=== PATIENT | female | born 1970 | race Caucasian/White ===

== ENCOUNTER 2018-10-15 03:50 | Observation (INO) | payer OTHER ==
--- NOTE | 2018-10-15 04:11 | RADIOLOGY REPORT (SQ) ---
EXAM DESCRIPTION: CT HEAD WITHOUT IV CONTRAST COMPLETED DATE/TME: 10/15/2018 03:55 CLINICAL HISTORY: 48 years, Female, stroke alert COMPARISON: 02/13/2016 CT TECHNIQUE: 190 Images stored on PACS. All CT scanners at this facility use dose modulation, iterative reconstruction, and/or weight based dosing when appropriate to reduce radiation dose to as low as reasonably achievable (ALARA). [facility]: Dose Right [facility]: CareDose [facility]: Dose Right [facility]: Teradose 4D [facility]: [employer] LIMITATIONS: None. FINDINGS: The globes are intact. Paranasal sinuses and mastoid air cells are unremarkable. No displaced or depressed skull fracture. No intra or extra-axial hemorrhage. CT is limited for evaluation of acute infarct. No CT evidence for large or territorial acute infarct. No mass or midline shift. IMPRESSION: Negative exam TECHNICAL DOCUMENTATION: Quality ID # 436: Final reports with documentation of one or more dose reduction techniques (e.g., Automated exposure control, adjustment of the mA and/or kV according to patient size, use of iterative reconstruction technique) copyright 2011 [employer]- All Rights Reserved
[2018-10-15 04:17] LABS: ABSOLUTE EOSINOPHILS # (AUTO) 0.1 10^3/uL (0.0-0.6); ABSOLUTE LYMPHOCYTES (AUTO) 1.5 10^3/uL (0.5-4.7); ABSOLUTE MONOCYTES (AUTO) 0.4 10^3/uL (0.1-1.4); ABSOLUTE NEUT (AUTO) 4.4 10^3/uL (1.7-8.2); BASOPHILS % (AUTO) 0.5 % (0-2); EOSINOPHILS % (AUTO) 1.2 % (0-6); HEMATOCRIT 43.7 % (36.0-47.0); HEMOGLOBIN 14.7 g/dL (12.0-15.5); MEAN CORPUSCULAR HGB CONC 33.5 g/dL (32.0-36.0); MEAN CORPUSCULAR VOLUME 84 fl (80-97); MONOCYTES % (AUTO) 6.6 % (3-13); PLATELET COUNT 314 10^3/uL (150-450); RED BLOOD COUNT 5.24 10^6/uL (3.72-5.28); RED CELL DISTRIBUTION WIDTH 14.6 % (11.5-14.0); SEGMENTED NEUTROPHILS % (AUTO) 68.7 % (42-78); TOTAL CELLS COUNTED % (AUTO) 100 %; WHITE BLOOD COUNT 6.5 10^3/uL (4.0-10.5)
--- NOTE | 2018-10-15 04:17 | RADIOLOGY REPORT (SQ) ---
EXAM DESCRIPTION: XR CHEST 1 VIEW COMPLETED DATE/TME: 10/15/2018 03:55 CLINICAL HISTORY: 48 years, Female, stroke alert COMPARISON: None. NUMBER OF VIEWS: 1 TECHNIQUE: Portable chest LIMITATIONS: None. FINDINGS: Heart size normal. Lungs are clear. No pneumothorax IMPRESSION: Negative chest copyright 2010 [employer]- All Rights Reserved
[2018-10-15 04:22] LABS: PROTHROMBIN TIME 12.6 SEC (11.4-15.4)
[2018-10-15 04:23] LABS: PARTIAL THROMBOPLASTIN TIME 32.7 SEC (23.5-35.8)
--- NOTE | 2018-10-15 04:24 | ER Document Report ---
ED NIH Stroke Scale - NIH Stroke Scale *: 1. NIH scale should be completed with appropriate accompanying assessment tools. *: 2. The NIH should reflect what the patient is capable of doing and should not be coached by the clinician. 1a. Level of Consciousness: 0=Alert;keenly responsive -: 1=Drowsy -: 2=Obtunded -: 3=Coma/unresponsive or reflex to noxious stimuli. 1a. Responses: 0 1b. Orientation Questions: a. What month is it? -: b. How old are you? -: 0=Answers both questions correctly. -: 1=Answers one question correctly or patient is intubated or has orotracheal trauma. -: 2=Answers neither question correctly. 1b. Responses: 0 1c. Response to commands: a. Open and close eyes? -: b. Mortgage Or Loan Underwriter and release hand? -: Credit is given despite weakness. Demonstration of task is permitted. Substitute command if hands cannot be used. -: 0=Performs both tasks correctly -: 1=Performs one task correctly -: 2=Performs neither task correctly 1c. Responses: 0 2. Gaze: Establish eye contact and instruct patient to "Follow my finger" -: 0=Normal -: 1=Partial gaze palsy. Gaze is abnormal in one or both eyes, but where forced deviation or total gaze paresis is not present. -: 2=Forced deviation or total gaze paresis. 2. Responses: 0 3. Visual Grant: Sees fingers in all four quadrants. -: 0=No visual loss. -: 1=Partial hemianopsia. -: 2=Complete hemianopsia. -: 3=Bilateral hemianopsia (including Cortical blindness) 3. Responses: 0 4. Facial Movement: Instruct patient to: -: a. Show me your teeth -: b. Raise your eyebrows -: c. Close your eyes -: d. Smile -: 0=Normal symmetrical movement -: 1=Minor paralysis (flattened nasolabial fold, asymmetry on smiling). -: 2=Partial paralysis (total or near total paralysis of lower face). -: 3=Complete paralysis of upper and lower face 4. Responses: 0 5. Motor functions (left arm): Alternate sides and extend each arm with palms down (90 degrees if sitting or 45 degrees for supine). -: 0=No drift;limb holds for full 10 seconds. -: 1=Drift; limb holds but drifts down before full 10 seconds, but does not hit bed. -: 2=Some effort against gravity; limb cannot get to or maintain position. -: 3=No effort against gravity; limb falls. -: 4=No movement. -: UN=Amputation, joint fusion, explain in comments. 5. Responses (left arm): 0 5. Motor Functions (right arm): Alternate sides and extend each arm with palms down (90 degrees if sitting or 45 degrees for supine). -: 0=No drift;limb holds for full 10 seconds. -: 1=Drift; limb holds but drifts down before full 10 seconds, but does not hit bed. -: 2=Some effort against gravity; limb cannot get to or maintain position. -: 3=No effort against gravity; limb falls. -: 4=No movement. -: UN=Amputation, joint fusion, explain in comments. 5. Responses (right arm): 0 6. Motor Functions (left leg): With patient lying supine, alternate sides and extend each leg (30 degrees always while supine). -: 0=No drift, leg holds position for full 5 seconds -: 1=Drift; leg falls before full 5 seconds but does not hit bed. -: 2=Some effort against gravity, leg falls to bed but some effort against gravity. -: 3=No effort against gravity, leg falls to bed immediately. -: 4=No movement. -: UN=Amputation, joint fusion; explain in comments. 6. Responses (left leg): 0 6. Motor Functions (right leg): With patient lying supine, alternate sides and extend each leg (30 degrees always while supine). -: 0=No drift, leg holds position for full 5 seconds -: 1=Drift; leg falls before full 5 seconds but does not hit bed. -: 2=Some effort against gravity, leg falls to bed but some effort against gravity. -: 3=No effort against gravity, leg falls to bed immediately. -: 4=No movement. -: UN=Amputation, joint fusion; explain in comments. 6. Responses (right leg): 0 7. Limb Ataxia: With eyes open instruct patient to: -: a. "Touch your finger to your nose". -: b. "Touch your heel to your haas" -: 0=Absent -: 1=Present in one limb. -: 2=Present in two limbs. -: UN=Amputation or joint fusion; explain in comments. 7. Responses: 0 8. Sensory: Test sensation using pinprick or noxious stimuli. Test as many body parts as possible. -: 0=Normal;no sensory loss -: 1=Mile to moderate sensory loss (patient feels pin prick but is less sharp on affected side). -: 2=Severe or total sensory loss. 8. Responses: 1 9. Best Language: Instruct patient to: -: a. "Describe what you see in this picture." -: b. "Name the items in this picture." -: c. "Read these sentences." -: 0=No aphasia, normal -: 1=Mild to moderate aphasia. -: 2=Severe aphasia -: 3=Mute, global aphasia, no usable speech or auditory comprehension. 9. Responses: 0 10. Articulation, Dysarthia: Instruct patient to: -: "Read these words" or "Repeat these words" -: 0=Normal -: 1=Mild to moderate; patient may slur some words but can be understood without difficulty. -: 2=Severe; patients speech so slurred as to be unintelligible in the absence of dysphasia. -: UN=Intubated or other physical barrier, explain in comments. 10. Responses: 0 11. Extinction or inattention: 0=No abnormality -: 1= Visual, tactile, auditory, spatial, or personal inattention or extinction to bilateral simulation in one or the sensory modalities. -: 2=Profound gonzales-inattention or gonzales-inattention to more than one modality; does not recognize own hand. 11. Responses: 0 Total Score: 1
[2018-10-15 04:26] LABS: ALANINE AMINOTRANSFERASE 35 U/L (9-52); ALBUMIN 4.9 g/dL (3.5-5.0); ALKALINE PHOSPHATASE 59 U/L (38-126); ANION GAP 17 (5-19); ASPARTATE AMINO TRANSFERASE 30 U/L (14-36); BILIRUBIN,DIRECT 0.2 mg/dL (0.0-0.4); BILIRUBIN,TOTAL 0.3 mg/dL (0.2-1.3); BLOOD UREA NITROGEN 10 mg/dL (7-20); CARBON DIOXIDE 19 mmol/L (22-30); CHLORIDE 105 mmol/L (98-107); CREATINE KINASE 68 U/L (30-135); GLUCOSE 101 mg/dL (75-110); SODIUM 140.9 mmol/L (137-145); TOTAL PROTEIN 8.3 g/dL (6.3-8.2)
[2018-10-15] MEDS ORDERED: ASPIRIN 325 MG TABLET PO ONE (04:26)
--- NOTE | 2018-10-15 04:30 | ER Document Report ---
ED General - General Chief Complaint: S/S of Possible Stroke Stated Complaint: S/S STROKE Time Seen by Provider: 10/15/18 04:01 Notes: Patient is a pleasant 48-year-old female who presents with complaint of possible strokelike symptoms. Patient was riding in a car with her . Symptoms started around 115 a millimeter. Patient says she suddenly felt weird in her head and did not feel right. She felt like she was try to talk but cannot get the words out. She then felt as if she had a hard time moving her right side. said her speech is very slurred. He does admit that has been under a lot of stress recently did drink some alcohol tonight however the symptoms have never occurred before. She does have history of hypertension and does take blood pressure medication for this. She used to be on aspirin but no longer ta kes aspirin. Paramedics said when he first arrived she had slurred speech and paralysis of the right extremities. Patient says she now feels much improved. She said the only residual symptom she has now is that she has a tingling type sensation in her right-sided extremities and little bit to the right side of her face. She says that she feels that her weakness is gone. TRAVEL OUTSIDE OF THE [place] IN LAST 30 DAYS: No - Related Data Allergies/Adverse Reactions: No Known Allergies Allergy (Unverified 11/21/14 05:08) Past Medical History - Social History Smoking Status: Unknown if Ever Smoked Frequency of alcohol use: Occasional Drug Abuse: None Family History: Reviewed & Not Pertinent - Past Medical History Cardiac Medical History: Reports: Hx DVT Malignancy Medical History: Reports: Hx Cervical Cancer - Stage I, Hx Skin Cancer - Stage II Past Surgical History: Reports: Hx Appendectomy, Hx Cholecystectomy - Immunizations Immunizations up to date: Yes Hx Diphtheria, Pertussis, Tetanus Vaccination: Yes Review of Systems - Review of Systems Notes: My Normal Review Basic REVIEW OF SYSTEMS: CONSTITUTIONAL : Denies fever, chills, or sweats. Denies recent illness. EENT: Denies eye, ear, throat, or mouth pain or symptoms. Denies nasal or sinus congestion. CARDIOVASCULAR: Denies chest pain. RESPIRATORY: Denies cough, cold, or chest congestion. Denies shortness of breath, difficulty breathing, or wheezing. GASTROINTESTINAL: Denies abdominal pain. Denies nausea, vomiting, or diarrhea. GENITOURINARY: Denies difficulty urinating, painful urination, burning, frequency, or blood in urine. MUSCULOSKELETAL: Denies neck or back pain or joint pain or swelling. SKIN: Denies rash or skin lesions. HEMATOLOGIC : Denies easy bruising or bleeding. LYMPHATIC: Denies swollen, enlarged glands. NEUROLOGICAL: Episode of slurred speech and right-sided weakness. PSYCHIATRIC: Some recent stressors. ALL OTHER SYSTEMS REVIEWED AND NEGATIVE. Physical Exam - Vital signs Vitals: Pulse Resp BP Pulse Ox 93 14 125/94 H 98 10/15/18 04:05 10/15/18 04:05 10/15/18 04:05 10/15/18 04:05 - Notes Notes: General Appearance: Well nourished, alert, cooperative, no acute distress, no obvious discomfort. Vitals: reviewed, See vital signs table. Head: no swelling or tenderness to the head Eyes: PERRL, EOMI, Conjuctiva clear Mouth: No decreasd moisture Throat: No tonsillar inflammation, No airway obstruction, No lymphadenopathy Lungs: No wheezing, No rales, No rhonci, No accessory muscle use, good air exchange bilaterally. Heart: Normal rate, Regular rythm, No murmur, no rub Abdomen: Normal BS, soft, No rigidity, No abdominal tenderness, No guarding, no rebound, no abdominal masses, no organomegaly Extremities: strength 5/5 in all extremities, good pulses in all extremities, no swelling or tenderness in the extremities, no edema. Skin: warm, dry, appropriate color, no rash Neuro: speech clear, oriented x 3, normal affect, responds appropriately to questions. Cranial nerves II through XII are intact. She can feel me touch the distal aspect of all 4 extremities. She says that there may be is just slight decrease in sensation in the right side versus the left side. Patient is able to raise her arms off the bed and hold both arms against gravity without difficulty for at least 5 seconds. She is able to raise both legs off the bed and hold both legs off the bed without difficulty for at least 5 seconds. She has good strength with plantar and dorsiflexion against resistance. Good guest service supervisor strength bilaterally. Course - Re-evaluation Re-evalutation: 10/15/18 05:21 Patient's symptoms have now completely resolved. Her NIH scale is 0. It a ppears that she has had a TIA. I have spoken with the hospitalist, Dr. Lund, who agrees to evaluate the patient for admission. I did give the patient dose of aspirin here. I did discuss plan with the patient and her and they are agreeable to it. Dictation of this chart was performed using voice recognition software; therefore, there may be some unintended grammatical errors. - Vital Signs Vital signs: Temp Pulse Resp BP Pulse Ox 93 14 125/94 H 98 10/15/18 04:05 10/15/18 04:05 10/15/18 04:05 10/15/18 04:05 - Laboratory Result Diagrams: 10/15/18 03:24 10/15/18 03:24 Laboratory results interpreted by me: 10/15/18 10/15/18 03:24 03:24 RDW 14.6 H Carbon Dioxide 19 L Total Protein 8.3 H Discharge - Discharge Clinical Impression: TIA (transient ischemic attack) Condition: Good Disposition: ADMITTED INPATIENT Admitting Provider: Hospitalist Unit Admitted: [facility]
[2018-10-15 04:38] LABS: CREATINE KINASE MB 0.36 ng/mL (<4.55)
[2018-10-15 04:47] LABS: TROPONIN I < 0.012 ng/mL
[2018-10-15] MEDS ORDERED: TEMAZEPAM 15 MG CAPSULE PO PRN (05:37)
[2018-10-15] MEDS ORDERED: ONDANSETRON HCL INJ/PF 4 MG/2 ML SDV IV PRN (05:37)
[2018-10-15] MEDS ORDERED: MAGNESIUM HYDROXIDE SUSP 30 ML UDCUP PO PRN (05:37)
[2018-10-15] MEDS ORDERED: DOCUSATE SODIUM 100 MG CAPSULE PO PRN (05:37)
[2018-10-15] MEDS ORDERED: ONDANSETRON 4 MG TAB.RAPDIS PO PRN (05:37)
[2018-10-15] MEDS ORDERED: NICOTINE 21 MG/24 HR PATCH.TD24 TD PRN (05:44)
[2018-10-15] MEDS ORDERED: ACETAMINOPHEN 325 MG TABLET PO PRN (05:44)
[2018-10-15] MEDS ORDERED: NALBUPHINE HCL INJ 10 MG/1 ML AMPULE IV PRN (05:44)
--- NOTE | 2018-10-15 07:10 | PDOC H&P ---
History of Present Illness Admission Date/PCP: 10/15/2018 Patient complains of: Stroke symptoms History of Present Illness: TRINH ZAMBRANO is a 48 year old female who presented to the emergency room on the corn husk baler of 10/15/2018 with a history of "stroke symptoms". Patient indicates that beginning on the afternoon prior to her admission she noted that everything seemed to go slowly (patient has a hard time describing this but is not slow motion just that it seemed like it took the long time for simple things to occur much longer than it normally would). Just prior to midnight she noted that she was having difficulty finding the word that she wanted to express though she could think of the word she could not make her mouth say it. Then at approximately 1:00 in the morning she felt her right arm was floppy and though she could lift it she could not control it well in her right leg would not move at all. Her noted that her speech was slurred and that she continued to have difficulty expressing herself. Ambulance was summoned at 1:53 AM and the patient was brought to the emergency room. During her trip to the emergency room and her early ER course her symptoms seem to begin to resolve very rapidly. In the emergency room her CAT scan showed no evidence of acute hemorrhage and her overall evaluation was fairly unremarkable with the exception of anemia. Patient was subsequently admitted to the hospital for further evaluation and treatment per the stroke protocol. Past Medical History Cardiac Medical History: Reports: DVT, Hypertension Denies: Atrial Fibrillation, Coronary Artery Disease, Pulmonary Embolism Pulmonary Medical History: Denies: Asthma, Chronic Obstructive Pulmonary Disease (COPD) EENT Medical History: Denies: Cataracts Neurological Medical History: Reports: Other - Intracranial hypertension with last Denies: Hemorrhagic CVA, Ischemic CVA, Migraine, Seizures Endocrine Medical History: Reports: Obesity Denies: Diabetes Mellitus Type 1, Diabetes Mellitus Type 2, Hyperthyroidism, Hypothyroidism Renal/ Medical History: Reports: Other - Complicated at 47 years of age with severe preeclampsia Denies: Chronic Kidney Disease, Nephrolithiasis Malignancy Medical History: Reports: Cervical Cancer - Stage I, Skin Cancer - Stage II GI Medical History: Reports: Other - Persistent left lower quadrant abdominal pain following Denies: Cirrhosis, Hepatitis Musculoskeltal Medical History: Denies: Arthritis, Gout Skin Medical History: Denies: Eczema, Psoriasis Psychiatric Medical History: Denies: Alcohol Dependency, Substance Abuse, Tobacco Dependency Traumatic Medical History: Reports: None Hematology: Denies: Anemia, Bleeding Tendencies Infectious Medical History: Reports: None Past Surgical History Past Surgical History: Reports: Appendectomy, Section - In February 2018, Cholecystectomy Social History Information Source: Patient Lives with: Family, Spouse/Significant other Smoking Status: Never Smoker Frequency of Alcohol Use: Social Hx Recreational Drug Use: No Drugs: None Hx Prescription Drug Abuse: No - Advance Directive Resuscitation Status: Full Code Surrogate healthcare decision maker:: Spouse Family History Family History: CAD, CVA, DM, Hypertension Parental Family History Reviewed: Yes Children Family History Reviewed: No Sibling(s) Family History Reviewed.: Yes Medication/Allergy Home Medications: Oxycodone HCl/Acetaminophen [Percocet 5-325 mg Tablet] 1 - 2 tab PO Q4H PRN #25 tablet 11/21/14 Promethazine HCl [Phenergan 25 mg Tablet] 1 - 2 tab PO Q6H PRN #15 tablet 11/21/14 Allergies/Adverse Reactions: No Known Allergies Allergy (Unverified 11/21/14 05:08) Review of Systems Constitutional: ABSENT: chills, fever(s) Eyes: ABSENT: visual disturbances, other - IP Ears: ABSENT: hearing changes, other - Ear pain Nose, Mouth, and Throat: ABSENT: mouth pain, sore throat Cardiovascular: ABSENT: chest pain, dyspnea on exertion, orthropnea, palpitations Respiratory: ABSENT: cough, dyspnea Gastrointestinal: PRESENT: abdominal pain - Chronic left lower abdominal pain in the inguinal region since her section in February 2018. Has not been evaluated by surgeons postoperatively.. ABSENT: constipation, diarrhea, nausea, vomiting Genitourinary: ABSENT: dysuria, hematuria Musculoskeletal: PRESENT: as per HPI, other - Right-sided weakness in upper and lower extremities. ABSENT: deformity, joint swelling Integumentary: ABSENT: pruritus, rash Neurological: PRESENT: as per HPI, abnormal gait, abnormal speech - Dysarthria, focal weakness, other - Expressive aphasia with current episode, history of idiopathic intracranial hypertension with her as well as preeclampsia.. ABSENT: confusion, convulsions, memory loss Psychiatric: ABSENT: anxiety, depression Endocrine: ABSENT: cold intolerance, heat intolerance Hematologic/Lymphatic: ABSENT: easy bleeding, easy bruising Physical Exam Vital Signs: Temp Pulse Resp BP Pulse Ox 93 14 125/94 H 98 10/15/18 04:05 10/15/18 04:05 10/15/18 04:05 10/15/18 04:05 Intake & Output 10/13/18 10/14/18 10/16/18 23:59 23:59 00:59 Weight 104 kg General appearance: PRESENT: no acute distress, cooperative, obese Head exam: PRESENT: atraumatic, normocephalic Eye exam: PRESENT: conjunctiva pink, EOMI. ABSENT: scleral icterus Ear exam: PRESENT: normal external ear exam. ABSENT: bleeding, drainage Mouth exam: PRESENT: dry mucosa, neck supple Neck exam: ABSENT: thyromegaly, tracheal deviation Respiratory exam: PRESENT: clear to auscultation connie, symmetrical, unlabored Cardiovascular exam: PRESENT: RRR. ABSENT: clicks, gallop, rubs Pulses: PRESENT: normal radial pulses, normal dorsalis pedis pul Vascular exam: PRESENT: normal capillary refill. ABSENT: pallor GI/Abdominal exam: PRESENT: normal bowel sounds, soft Rectal exam: PRESENT: deferred Extremities exam: ABSENT: joint swelling, pedal edema Musculoskeletal exam: ABSENT: deformity, dislocation Neurological exam: PRESENT: alert, oriented to person, oriented to place, oriented to time, oriented to situation, CN II-XII grossly intact. ABSENT: m otor sensory deficit Psychiatric exam: PRESENT: appropriate affect, normal mood Skin exam: PRESENT: dry, intact, warm. ABSENT: jaundice, rash, urticaria Results Laboratory Results: 10/15/18 03:24 10/15/18 03:24 10/15/18 10/15/18 03:24 03:24 WBC 6.5 RBC 5.24 Hgb 14.7 Hct 43.7 MCV 84 MCH 28.0 MCHC 33.5 RDW 14.6 H Plt Count 314 Seg Neutrophils % 68.7 Lymphocytes % 23.0 Monocytes % 6.6 Eosinophils % 1.2 Basophils % 0.5 Absolute Neutrophils 4.4 Absolute Lymphocytes 1.5 Absolute Monocytes 0.4 Absolute Eosinophils 0.1 Absolute Basophils 0.0 Sodium 140.9 Potassium 4.0 Chloride 105 Carbon Dioxide 19 L Anion Gap 17 BUN 10 Creatinine 0.58 Est GFR ( Amer) > 60 Est GFR (Non-Af Amer) > 60 Glucose 101 Calcium 10.0 Total Bilirubin 0.3 AST 30 ALT 35 Alkaline Phosphatase 59 Total Protein 8.3 H Albumin 4.9 10/15/18 10/15/18 03:24 03:24 Creatine Kinase 68 CK-MB (CK-2) 0.36 Troponin I < 0.012 Impressions: Chest X-Ray 10/15/18 03:55 IMPRESSION: Negative chest copyright 2010 [employer]- All Rights Reserved Head CT 10/15/18 03:55 IMPRESSION: Negative exam TECHNICAL DOCUMENTATION: Quality ID # [id number]: Final reports with documentation of one or more dose reduction techniques (e.g., Automated exposure control, adjustment of the mA and/or kV according to patient size, use of iterative reconstruction technique) copyright 2010 [employer]- All Rights Reserved Assessment & Plan - Diagnosis (1) TIA (transient ischemic attack) Is this a current diagnosis for this admission?: Yes Plan: Patient will be evaluated for her acute transient ischemic attack with the routine evaluation utilizing an MRI of the brain with an MRA of the head and neck as well as an echocardiogram. She will be placed on low-dose aspirin initially with further therapeutic decisions as appropriate. (2) Hypertension Qualifiers: Hypertension type: essential hypertension Qualified Code(s): I10 - Essential (primary) hypertension Is this a current diagnosis for this admission?: Yes Plan: Patient will be continued on her usual antihypertensive medications with changes made only as required for appropriate therapy. (3) Obesity (BMI 30.0-34.9) Is this a current diagnosis for this admission?: Yes Plan: Patient will have a nutrition consult with recommendations for lifestyle and diet changes made to enhance her medical health and overall quality of life. (4) History of DVT (deep vein thrombosis) Is this a current diagnosis for this admission?: Yes Plan: With patient's history of DVT having her take low-dose aspirin on a daily basis is even more appropriate and treatment of both her TIA and possible reduction of risk for further DVT. - Time Time Spent: 30 to 50 Minutes Critical Time spent with patient: Less than 15 minutes Medications reviewed and adjusted accordingly: Yes Anticipated discharge: Home - Inpatient Certification Based on my medical assessment, after consideration of the patient's comorbi dities, presenting symptoms, or acuity I expect that the services needed warrant INPATIENT care.: Yes I certify that my determination is in accordance with my understanding of Medicare's requirements for reasonable and necessary INPATIENT services [42 CFR 412.3e].: Yes Medical Necessity: Need Close Monitoring Due to Risk of Patient Decompensation, Need For Continuous Telemetry Monitoring, Need for Neurological Checks, Risk of Complication if Not Cared For in Hospital
[2018-10-15 07:39] LABS: FREE T3 4.23 pg/mL (2.77-5.27); FREE T4 (FREE THYROXINE) 1.57 ng/dL (0.78-2.19)
[2018-10-15] MEDS ORDERED: FONDAPARINUX SODIUM INJ 2.5 MG/0.5 ML DISP.SYRIN SUBCUT SCH (08:00)
[2018-10-15 09:36] LABS: CREATINE KINASE MB 0.34 ng/mL (<4.55)
[2018-10-15 09:38] LABS: TROPONIN I < 0.012 ng/mL
[2018-10-15] MEDS ORDERED: LISINOPRIL 10 MG TABLET PO SCH (10:00)
[2018-10-15] MEDS ORDERED: ASPIRIN 81 MG TABLET, ENT COATED PO SCH (10:00)
--- NOTE | 2018-10-15 10:34 | RADIOLOGY REPORT (SQ) ---
EXAM DESCRIPTION: MRI HEAD WITHOUT COMPLETED DATE/TIME: 10/15/2018 10:00 am REASON FOR STUDY: eval for cva COMPARISON: None. TECHNIQUE: Multiplanar imaging includes non-contrasted T1, T2, FLAIR, and diffusion with ADC map seq uences. Images stored on PACS. LIMITATIONS: Motion. FINDINGS: ANATOMY: No anomalies. Normal vascular flow voids. Pituitary fossa normal. CSF SPACES: Normal in size and contour. No hemorrhage. CEREBRUM: Sulci and gyri normal in size and contour. Normal white matter signal on FLAIR imaging. No evidence of hemorrhage, mass, or extraaxial fluid collection. POSTERIOR FOSSA: No signal alteration. No hemorrhage. No edema, masses or mass effect. Internal justus tory canals, cerebello-pontine angles, mastoids normal. DIFFUSION IMAGING: Negative for acute or sub-acute infarction. ORBITS: No masses. Globes normal. PARANASAL SINUSES: No fluid levels. Mucosa normal. OTHER: No other significant finding. IMPRESSION: NORMAL MRI OF THE BRAIN WITHOUT INTRAVENOUS GADOLINIUM CONTRAST. EVIDENCE OF ACUTE STROKE: NO. TECHNICAL DOCUMENTATION: JOB ID: [id number] [employer]- All Rights Reserved Reading location - IP/workstation name: [email or web address]
--- NOTE | 2018-10-15 10:41 | RADIOLOGY REPORT (SQ) ---
EXAM DESCRIPTION: MRA HEAD WITHOUT COMPLETED DATE/TIME: 10/15/2018 10:00 am REASON FOR STUDY: eval for CVA. R facial parasthesia asymmetry COMPARISON: None. TECHNIQUE: Axial 3-D [id number] acquisition imaging performed through the brain in the area of t he [place]. Images reformatted using 3-D MIPS. LIMITATIONS: None. FINDINGS: SOURCE IMAGES: No unexpected findings on source images. No large masses. 3-D MIP: No aneurysm. No occlusions. No significant stenosis. OTHER: No other significant finding. IMPRESSION: NORMAL MRA OF THE [place]. TECHNICAL DOCUMENTATION: JOB ID: [id number] [employer]- All Rights Reserved Reading location - IP/workstation name: [email or web address]
--- NOTE | 2018-10-15 11:21 | RADIOLOGY REPORT (SQ) ---
EXAM DESCRIPTION: MRA NECK WITHOUT COMPLETED DATE/TIME: 10/15/2018 10:00 am REASON FOR STUDY: eval for cva COMPARISON: None. TECHNIQUE: Axial 2-D volume acquisition imaging through the extracranial carotid and vertebral arter ies with reformatting using 3-D MIPS. LIMITATIONS: Motion. FINDINGS: RIGHT CAROTID ARTERY: Right common carotid is occluded near the bifurcation. There is rec onstituted flow in the right ICA at the level of the siphon. LEFT CAROTID ARTERY: No stenosis or occlusive changes. Limited visualization of the origin. VERTEBRAL ARTERY: The extracranial portions of the vertebral basilar system are preserved without jaden nosis. No aneurysmal dilatation or dissection is seen. OTHER: No other significant finding. 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 Reconstituted flow in the more distal ICA. COMMENT: Quality ID #[id number]: Measurements of distal internal carotid diameter were used as the denomin ator for stenosis measurement. TECHNICAL DOCUMENTATION: JOB ID: [id number] [employer]- All Rights Reserved Reading location - IP/workstation name: [email or web address]
[2018-10-15 11:32] VITALS: BP 113/70
--- NOTE | 2018-10-15 12:29 | EKG REPORT ---
SEVERITY:- BORDERLINE ECG - SINUS RHYTHM BORDERLINE T ABNORMALITIES, INFERIOR LEADS : Confirmed by: Debbie Garcia MD 15-Oct-2018 12:28:38
[2018-10-15] MEDS ORDERED: HEPARIN SODIUM,PORCINE/D5W 25,000 UNIT/250 ML RTUINJ IV PRN (13:18)
[2018-10-15] MEDS ORDERED: METOPROLOL TARTRATE PF/INJ 5 MG/5 ML SDV IV PRN (13:20)
[2018-10-15] MEDS ORDERED: HYDRALAZINE HCL INJ/PF 20 MG/1 ML SDV IV PRN (13:21)
--- NOTE | 2018-10-15 13:56 | PDOC TRANSFER SUMMARY ---
General Admission Date/PCP: 10/15/18 05:36 ALDEN CORTEZ MD Admission Date: 10/14/18 Transfer Date: 10/15/18 Accepting Facility: [facility] Accepting Physician: DR. KUNZ Resuscitation Status: Full Code - Transfer Diagnosis (1) TIA (transient ischemic attack) Is this a current diagnosis for this admission?: Yes (2) History of DVT (deep vein thrombosis) Is this a current diagnosis for this admission?: Yes (3) Hypertension Is this a current diagnosis for this admission?: Yes (4) Obesity (BMI 30.0-34.9) Is this a current diagnosis for this admission?: Yes - Transfer Medications Transfer Medications: Current Medications Acetaminophen (Tylenol 325 Mg Tablet) 650 mg PO Q4HP PRN PRN Reason: For headache, pain or fever Stop: 11/14/18 05:43 Aspirin (Ecotrin 81 Mg Ec Tablet) 81 mg PO DAILY [facility] Stop: 11/14/18 09:59 Last Admin: 10/15/18 10:48 Dose: 81 mg Documented by: Docusate Sodium (Colace 100 Mg Capsule) 100 mg PO BIDP PRN PRN Reason: FOR CONSTIPATION Stop: 11/14/18 05:36 Hydralazine HCl (Apresoline Inj/Pf 20 Mg/1 Ml Sdv) 10 mg IV Q6HP PRN PRN Reason: GIVE FOR SBP > 160 Stop: 11/14/18 13:20 Heparin Sodium/Dextrose (Heparin Rtu 25,000 Unit/250 Ml D5w Premix) 250 mls @ 0 mls/hr IV CONTINUOUS PRN; Protocol PRN Reason: THIS MED IS NOT "PRN" Stop: 11/14/18 13:17 Influenza Virus Vaccine Quadrival (Fluarix Adlt Quad Vac 0.5 Ml Syr) 0.5 ml IM .DISCHARGE PRN PRN Reason: THIS MED IS NOT "PRN" Stop: 11/14/18 07:16 Lisinopril (Prinivil 10 Mg Tablet) 20 mg PO DAILY [facility] Stop: 11/14/18 09:59 Last Admin: 10/15/18 10:49 Dose: 20 mg Documented by: Magnesium Hydroxide (Milk Of Magnesia 30 Ml Udcup) 30 ml PO HSP PRN PRN Reason: FOR CONSTIPATION Stop: 11/14/18 05:36 Metoprolol Tartrate (Lopressor Inj/Pf 5 Mg/5 Ml Sdv) 5 mg IV Q6HP PRN PRN Reason: GIVE FOR SBP > 160 Stop: 11/14/18 13:19 Nalbuphine HCl (Nubain Inj 10 Mg/1 Ml Ampule) 10 mg IV Q3HP PRN PRN Reason: FOR PAIN Stop: 10/22/18 05:43 Nicotine (Nicoderm 21 Mg/24 Hr Transderm Patch) 1 each TD DAILYP PRN PRN Reason: WITHDRAWAL SYMPTOMS Stop: 11/14/18 05:43 Ondansetron HCl (Zofran Inj/Pf 4 Mg/2 Ml Sdv) 4 mg IV Q4HP PRN PRN Reason: FOR NAUSEA/VOMITING Stop: 11/14/18 05:36 Ondansetron HCl (Zofran Odt 4 Mg Tablet) 4 mg PO Q4HP PRN PRN Reason: FOR NAUSEA/VOMITING Stop: 11/14/18 05:36 Sodium Chloride (Saline Flush 2.5 Ml Monoject Prefil Syrin) 2.5 ml IV Q8 [facility] Stop: 11/14/18 05:59 Last Admin: 10/15/18 08:42 Dose: 2.5 ml Documented by: Temazepam (Restoril 15 Mg Capsule) 15 mg PO HSP PRN PRN Reason: SLEEP OR INSOMNIA Stop: 10/22/18 05:36 - Allergies Allergies/Adverse Reactions: No Known Allergies Allergy (Unverified 11/21/14 05:08) Hospital Course Hospital Course: H&P TRINH ZAMBRANO is a 48 year old female who presented to the emergency room on the digital sales director of 10/15/2018 with a history of "stroke symptoms". Patient indicates that beginning on the afternoon prior to her admission she noted that everything seemed to go slowly (patient has a hard time describing this but is not slow motion just that it seemed like it took the long time for simple things to occur much longer than it normally would). Just prior to midnight she noted that she was having difficulty finding the word that she wanted to express thou gh she could think of the word she could not make her mouth say it. Then at approximately 1:00 in the morning she felt her right arm was floppy and though she could lift it she could not control it well in her right leg would not move at all. Her noted that her speech was slurred and that she continued to have difficulty expressing herself. Ambulance was summoned at 1:53 AM and the patient was brought to the emergency room. During her trip to the emergency room and her early ER course her symptoms seem to begin to resolve very rapidly. In the emergency room her CAT scan showed no evidence of acute hemorrhage and her overall evaluation was fairly unremarkable with the exception of anemia. Patient was subsequently admitted to the hospital for further evaluation and treatment per the stroke protocol. HOSPITAL COURSE: 48 y.o. F with PMH HTN, DVT (2011 - no anticoagulation), preeclampsia. Of note, the patient gave 7 months ago. Her was complicated by preeclampsia and HTN, started on lisinopril this week. The patient was admitted to the hospitalist service for an acute CVA workup. Head CT negative. MRI/MRA brain negative. MRA neck (+) for segmental occlusion of the distal right common carotid artery. Upon exam (morning after admission), the patient is alert and oriented x3. She is able to answer all questions jeni ropriately, without pauses, speech is clear. There is a very very mild R facial droop...almost negligible. No evidence of gross motor or fine motor deficits. 5/5 strength in all 4 extremities. No hand eye coordination or proprioception deficits. No reports of blurry vision, no visual deficits. The patient's only complaint is mild right facial paresthesia. Discussed this patient's case with Dr. Torres of [facility] neurology. He recommended starting the patient on a hepa rin gtt and transferring to [facility]. Plan to send this patient to [facility] today, the accepting physician is Dr. Kunz of the hospitalist service. Physical Exam Vital Signs: Temp Pulse Resp BP Pulse Ox 97.9 F 77 18 113/70 97 10/15/18 11:09 10/15/18 12:00 10/15/18 12:00 10/15/18 12:00 10/15/18 12:00 Intake & Output 10/14/18 10/15/18 10/16/18 05:59 06:59 06:59 Weight General appearance: PRESENT: no acute distress, obese, well-developed Head exam: PRESENT: atraumatic Eye exam: PRESENT: conjunctiva pink, PERRLA. ABSENT: nystagmus Mouth exam: PRESENT: moist, tongue midline Neck exam: PRESENT: full ROM Respiratory exam: PRESENT: clear to auscultation connie, symmetrical, unlabored Cardiovascular exam: PRESENT: RRR Pulses: PRESENT: normal radial pulses, normal dorsalis pedis pul Vascular exam: PRESENT: normal capillary refill GI/Abdominal exam: PRESENT: normal bowel sounds, soft. ABSENT: distended, tenderness Rectal exam: PRESENT: deferred Extremities exam: PRESENT: full ROM Musculoskeletal exam: PRESENT: ambulatory, full ROM Neurological exam: PRESENT: alert, awake, oriented to person, oriented to place, oriented to time, oriented to situation Psychiatric exam: PRESENT: appropriate affect Skin exam: PRESENT: dry, intact, normal color Results Laboratory Results: 10/15/18 03:24 10/15/18 03:24 10/15/18 10/15/18 10/15/18 03:24 03:24 03:24 WBC 6.5 RBC 5.24 Hgb 14.7 Hct 43.7 MCV 84 MCH 28.0 MCHC 33.5 RDW 14.6 H Plt Count 314 Seg Neutrophils % 68.7 Lymphocytes % 23.0 Monocytes % 6.6 Eosinophils % 1.2 Basophils % 0.5 Absolute Neutrophils 4.4 Absolute Lymphocytes 1.5 Absolute Monocytes 0.4 Absolute Eosinophils 0.1 Absolute Basophils 0.0 Sodium 140.9 Potassium 4.0 Chloride 105 Carbon Dioxide 19 L Anion Gap 17 BUN 10 Creatinine 0.58 Est GFR ( Amer) > 60 Est GFR (Non-Af Amer) > 60 Glucose 101 Calcium 10.0 Total Bilirubin 0.3 AST 30 ALT 35 Alkaline Phosphatase 59 Total Protein 8.3 H Albumin 4.9 Free T4 1.57 Free T3 pg/mL 4.23 10/15/18 10/15/18 10/15/18 03:24 03:24 08:33 Creatine Kinase 68 62 CK-MB (CK-2) 0.36 Troponin I < 0.012 10/15/18 08:33 Creatine Kinase CK-MB (CK-2) 0.34 Troponin I < 0.012 Impressions: Brain MRI with MRA 10/15/18 00:00 IMPRESSION: NORMAL MRA OF THE [place]. Head MRI 10/15/18 00:00 IMPRESSION: NORMAL MRI OF THE BRAIN WITHOUT INTRAVENOUS GADOLINIUM CONTRAST. EVIDENCE OF ACUTE STROKE: NO. 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 Reconstituted flow in the more distal ICA. Chest X-Ray 10/15/18 03:55 IMPRESSION: Negative chest copyright 2010 [employer]- All Rights Reserved Head CT 10/15/18 03:55 IMPRESSION: Negative exam TECHNICAL DOCUMENTATION: Quality ID # [id number]: Final reports with documentation of one or more dose reduction techniques (e.g., Automated exposure control, adjustment of the mA and/or kV according to patient size, use of iterative reconstruction technique) copyright 2011 [employer]- All Rights Reserved Status: Imported from PACS Plan Time Spent: Greater than 30 Minutes
[2018-10-15] MEDS ORDERED: HEPARIN SOD (PORCINE) 1,000 UNIT/ML 10 ML VIAL IV PRN (14:30)
[2018-10-15 14:35] LABS: ABSOLUTE EOSINOPHILS # (AUTO) 0.1 10^3/uL (0.0-0.6); ABSOLUTE LYMPHOCYTES (AUTO) 1.4 10^3/uL (0.5-4.7); ABSOLUTE MONOCYTES (AUTO) 0.6 10^3/uL (0.1-1.4); ABSOLUTE NEUT (AUTO) 5.1 10^3/uL (1.7-8.2); BASOPHILS % (AUTO) 0.4 % (0-2); EOSINOPHILS % (AUTO) 1.7 % (0-6); HEMATOCRIT 39.8 % (36.0-47.0); HEMOGLOBIN 13.4 g/dL (12.0-15.5); LYMPHOCYTES % (AUTO) 18.9 % (13-45); MEAN CORPUSCULAR HEMOGLOBIN 28.2 pg (27.0-33.4); MEAN CORPUSCULAR HGB CONC 33.8 g/dL (32.0-36.0); MEAN CORPUSCULAR VOLUME 84 fl (80-97); MONOCYTES % (AUTO) 8.5 % (3-13); PLATELET COUNT 307 10^3/uL (150-450); RED BLOOD COUNT 4.77 10^6/uL (3.72-5.28); RED CELL DISTRIBUTION WIDTH 14.7 % (11.5-14.0); SEGMENTED NEUTROPHILS % (AUTO) 70.5 % (42-78); TOTAL CELLS COUNTED % (AUTO) 100 %; WHITE BLOOD COUNT 7.3 10^3/uL (4.0-10.5)
[2018-10-15 14:43] LABS: INTERNATIONAL RATION (INR) 1.11; PROTHROMBIN TIME 14.9 SEC (11.4-15.4)
[2018-10-15 14:44] LABS: PARTIAL THROMBOPLASTIN TIME 35.3 SEC (23.5-35.8)
[2018-10-15 15:15] LABS: CREATINE KINASE MB 0.34 ng/mL (<4.55)
[2018-10-15 15:23] LABS: TROPONIN I < 0.012 ng/mL
--- NOTE | 2018-10-16 20:47 | XCELERA REPORT ---
[address] [id number] Transthoracic Echocardiogram Report Name: TRINH ZAMBRANO Age: 48 yrs Gender: Female : 1970 Patient Status: Inpatient Patient Location: [address] [place] [address] Study Date: 10/15/2018 12:49 PM Height: 68 in Weight: 229 lb BSA: 2.2 m2 Procedure: A two-dimensional transthoracic echocardiogram with color flow and Doppler was performed. Study Quality: Poor. Images were not obtained from all of the standard acoustic windows due to the limited scope of the study. The study was technically difficult with many images being suboptimal in quality. NOT A GOOD STUDY TO ASSESS CARDIOGENIC SOURCE FOR TIA. Reason For Study: TIA History: TIA. Ordering Physician: GAEL CARUSO Performed By: Jose F Dunham Interpretation Summary NOT A GOOD STUDY TO ASSESS CARDIOGENIC SOURCE FOR TIA. The left ventricle is normal in size. There is normal left ventricular wall thickness. No True apical 2 chamber views obtained.Hence cannot comment on the apical anterior , the basal anterior, the basal inferior and apical inferior pichardo.The mid anterior , the mid inferior and the rest of the LV pichardo contract normally. .Normal LVEF is normal and is greater than 65% in the limited views. LV diastolic function not assessed. No Obvious thrombus. The left atrial size is normal. There is no evidence of mitral valve prolapse. There is no mitral valve stenosis. There is no mitral regurgitation noted. There is no aortic valve stenosis No aortic regurgitation is present. No tricuspid regurgitation. Unable to Calculate RVSP due to lack of TR jet. There is no pericardial effusion. MMode/2D Measurements & Calculations RVDd: 2.6 cm LVIDd: 4.5 cm FS: 44.1 % Ao root diam: 3.4 cm IVSd: 1.0 cm LVIDs: 2.5 cm EDV(Teich): 93.4 ml Ao root area: 9.3 cm2 LVPWd: 1.2 cm ESV(Teich): 22.9 ml LA dimension: 3.3 cm EF(Teich): 75.5 % Doppler Measurements & Calculations MV E max macie: MV P1/2t max macie: Ao V2 max: LV V1 max P.7 cm/sec 80.5 cm/sec 103.7 cm/sec 2.6 mmHg MV A max macie: MV P1/2t: 79.2 msec Ao max PG: LV V1 max: 55.8 cm/sec MVA(P1/2t): 2.8 cm2 4.3 mmHg 80.9 cm/sec MV E/A: 1.1 MV dec slope: 297.7 cm/sec2 MV dec time: 0.27 sec PA V2 max: MV P1/2t-pr_phl: 97.0 cm/sec 79.2 msec PA max P.8 mmHg Left Ventricle The left ventricle is normal in size. There is normal left ventricular wall thickness. No True apical 2 chamber views obtained.Hence cannot comment on the apical anterior , the basal anterior, the basal inferior and apical inferior pichardo.The mid anterior , the mid inferior and the rest of the LV pichardo contract normally. .Normal LVEF is normal and is greater than 65% in the limited views. LV diastolic function not assessed. No Obvious thrombus. Right Ventricle The right ventricle is not well visualized secondary to technical limitations. Atria Right atrium not well visualized secondary to technical limitations. The left atrial size is normal. Mitral Valve There is no evidence of mitral valve prolapse. There is no mitral valve stenosis. There is no mitral regurgitation noted. Aortic Valve There is no aortic valve stenosis. No aortic regurgitation is present. Tricuspid Valve There is no tricuspid stenosis. No tricuspid regurgitation. Unable to Calculate RVSP due to lack of TR jet. Pulmonic Valve The pulmonic valve is not well visualized. Great Vessels The aortic root is not well visualized. Effusions There is no pericardial effusion. : GAEL CARUSO > Debbie Garcia
== END 2018-10-15 15:05 | disposition short-term general hospital (02) ==
LOC: ER 03:50 → EH 05:36 → INTOOBSV 05:36 → 3S 06:50
PROVIDERS: ADMIT Emergency Medicine; ATTEND Emergency Medicine
DX: G45.9 Transient cerebral ischemic attack, unspecified (principal); E66.9 Obesity, unspecified; Z73.3 Stress, not elsewhere classified; I10 Essential (primary) hypertension; Z68.34 Body mass index [BMI] 34.0-34.9, adult; Z86.718 Personal history of other venous thrombosis and embolism; Z79.899 Other long term (current) drug therapy; Z85.41 Personal history of malignant neoplasm of cervix uteri; Z85.828 Personal history of other malignant neoplasm of skin; Z90.49 Acquired absence of other specified parts of digestive tract; Z82.49 Family history of ischemic heart disease and other diseases of the circulatory system; Z82.3 Family history of stroke
CPT/HCPCS: 36415; 70450; 70544; 70547; 70551; 71045; 80053; 80307; 82550; 82553; 82962; 84439; 84481; 84484; 85025; 85610; 85730; 93005; 93010; 93306; 99285; G0378; J1644; J1652; J3490